=== PATIENT | female | born 1960 | race Caucasian/White ===

== ENCOUNTER 2020-12-08 12:25 | Emergency (ER) | payer MEDICARE, OTHER ==
[~2020-12-08] VITALS: Ht 160 cm; Wt 77.1 kg
[~2020-12-08 12:25] MED LIST: ALBUTEROL2.5 MG/0.5 INH; AMITRIPTYLINE H50 MG PO; ATIVAN1 MG PO; AUGMENTIN 875-1 EACH PO; BENADRYL25 MG PO; NORCO 5-325 TA1 EACH PO; PREDNISONE20 MG PO; SINGULAIR10 MG PO; VITAMIN D31000 UNIT PO; ZITHROMAX250 MG PO; ZOFRAN ODT4 MG PO
--- OUTSIDE RECORDS SUMMARY | 2020-12-08 12:28 | XMS ---
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 [facility] (12 MO.) [facility] T[facility] NOTE: Visits indicate total known visits. ED/UCC VISIT TRACKING (12 MO.) 12/08/2020 12:26 [facility] TYPE: Emergency COMPLAINT: - DIFFUCULTY BREATHING 11/17/2020 02:21 [facility] [place] TYPE: Emergency DIAGNOSES: - Periumbilical pain - Nausea with vomiting, unspecified - Abdominal Pain - Elevated urine levels of drugs, medicaments and biological substances - Fever, unspecified - Dehydration - Hypomagnesemia 11/07/2020 22:22 [facility] [place] TYPE: Emergency DIAGNOSES: - Nausea with vomiting, unspecified - Dizziness and giddiness - Chronic obstructive pulmonary disease, unspecified - Dizziness - Weakness - dizziness, weakness - Hypokalemia - Alcohol use, unspecified with intoxication, uncomplicated - Hypomagnesemia 09/25/2020 02:31 [facility] [place] TYPE: Emergency DIAGNOSES: - Fall - Abdominal Pain - Encounter for general adult medical examination without abnormal findings 09/20/2020 17:54 [facility] [place] TYPE: Emergency DIAGNOSES: - Anxiety disorder, unspecified - Contusion of scalp, initial encounter - Alcohol Intoxication - Anxiety - Unspecified fall, initial encounter - Depression 09/19/2020 12:40 [facility] [place] TYPE: Emergency DIAGNOSES: - Chest Pain - Head Injury Without Loc - Unspecified injury of head, initial encounter - Fall - Sinus Pain - Unspecified fall, initial encounter [facility] DIAGNOSES: - Chest Pain - Dorsalgia, unspecified - Back Pain - Chest pain, unspecified - Cough 09/12/2020 09:54 [facility]: [facility] DIAGNOSES: - head pain - Chronic sinusitis, unspecified - Headache (Adult - New Onset Or New Symptoms) 08/29/2020 21:03 [facility] [place] TYPE: Emergency DIAGNOSES: - Shortness of Breath - Chest Pain - Chronic obstructive pulmonary disease with (acute) exacerbation 08/11/2020 02:11 [facility] [place] TYPE: Emergency DIAGNOSES: - Hypo-osmolality and hyponatremia - Abnormal electrocardiogram [ECG] [EKG] - Dizziness and giddiness - Hypomagnesemia - Syncope 08/07/2020 02[facility] [place] [facility] DIAGNOSES: - Facial Swelling - Shortness of Breath - Other diseases of vocal cords - Allergy, unspecified, initial encounter 08/05/2020 12:08 [facility] [facility] DIAGNOSES: - Cold-like Symptoms - Bronchitis, not specified as acute or chronic - ambulance 07/21/2020 01[facility] DIAGNOSES: - Chest Pressure - Hypo-osmolality and hyponatremia - Cough - Anxiety - Bronchitis, not specified as acute or chronic - Pain, unspecified - Anxiety disorder, unspecified - Essential (primary) hypertension 07/19/2020 02:[facility] DIAGNOSES: - Vomiting, unspecified - Hypo-osmolality and hyponatremia - Shortness of breath - Cough - Chest Pain - Other chest pain - Cough - Shortness of Breath 07/18/2020 05:33 [facility] [place] TYPE: Emergency DIAGNOSES: - Vomiting, unspecified 07/17/2020 12:10 [facility] [place] TYPE: Emergency DIAGNOSES: - Bronchitis, not specified as acute or chronic - Alcohol use, unspecified with intoxication, uncomplicated - Emesis - Pain 06/24/2020 17:46 [facility] [place] TYPE: Emergency DIAGNOSES: - Pain - Nausea - Insomnia, unspecified - Nausea; Cramps - Pain, unspecified - Dizziness and giddiness - Anxiety disorder, unspecified - Emesis - Hypo-osmolality and hyponatremia 06/15/2020 10:32 [facility] [place] [facility] DIAGNOSES: - Shortness of Breath - Hypo-osmolality and hyponatremia - Shortness of breath - Chronic obstructive pulmonary disease, unspecified 04/29/2020 07:[facility] DIAGNOSES: - Epistaxis - chest pain, sob - Shortness of Breath - Chest Pain - Epistaxis 02/26/2020 18:08 [facility] [place] [facility] DIAGNOSES: - Cough - Chronic sinusitis, unspecified - Shortness of Breath INPATIENT VISIT TRACKING (12 MO.) 11/17/2020 02:21 [facility] [place] TYPE: Surgical Services DIAGNOSES: - Change in bowel habit - Periumbilical pain - Nausea with vomiting, unspecified - Dehydration - Hypokalemia - Fever, unspecified - Gastro-esophageal reflux disease without esophagitis - Hypomagnesemia - Anxiety disorder due to known physiological condition - Elevated urine levels of drugs, medicaments and biological substances - Dysphagia, unspecified - Vomiting, unspecified - Alcoholic hepatitis without ascites 08/11/2020 02:11 [facility] [place] TYPE: Medical Surgical DIAGNOSES: - Hypomagnesemia - Alcohol dependence with other alcohol-induced disorder - Hypo-osmolality and hyponatremia - Dizziness and giddiness - Alcoholic hepatitis without ascites - Abnormal electrocardiogram [ECG] [EKG] 07/21/2020 01:47 [facility] [place] TYPE: Medical Surgical DIAGNOSES: - Cough - Other microscopic hematuria - Chronic obstructive pulmonary disease with (acute) exacerbation - Morbid (severe) obesity due to excess calories - Alcoholic hepatitis without ascites - Essential (primary) hypertension - Hypo-osmolality and hyponatremia - Alcohol dependence with other alcohol-induced disorder - Anxiety disorder, unspecified - Severe persistent asthma, uncomplicated - Body mass index [BMI]40.0-44.9, adult - Fibromyalgia - Bronchitis, not specified as acute or chronic - Pain, unspecified 06/24/2020 17:46 [facility] [place] TYPE: Medical Surgical DIAGNOSES: - Mild intermittent asthma, uncomplicated - Nausea - Overweight - Fibromyalgia - Dizziness and giddiness - Insomnia, unspecified - Pain, unspecified - Generalized anxiety disorder - Hypo-osmolality and hyponatremia - Anxiety disorder, unspecified - Alcohol dependence with other alcohol-induced disorder - Acute cystitis with hematuria [email or web address]
[2020-12-08] MEDS ORDERED: LORAZEPAM0.5 MG PO (12:39)
[2020-12-08] MEDS ORDERED: OMEPRAZOLE20 MG PO (12:39)
[2020-12-08] MEDS ORDERED: MAG-OXIDE400 MG PO (12:39)
--- NOTE | 2020-12-08 20:06 | EKG ---
[facility] [address] [facility] [place], [place] [address] Signed Normal sinus rhythm Prolonged QT Abnormal ECG No previous ECGs available Confirmed by ANDRE MOHR DO ([id number]) on 12/08/2020 8:06:24 PM Electronically Signed By: ANDRE MOHR DO 12/08/20 2006 PATIENT NAME: GUNJAN DIAZ Electrocardiogram DATE OF : 62 PHYSICIAN: ANDRE MOHR DO REPORT #: [id number] REPORT IS CONFIDENTIAL AND NOT TO BE RELEASED WITHOUT AUTHORIZATION
== END 2020-12-08 16:17 | disposition home or self-care (01) ==
LOC: ED 12:25
DX: F41.9 Anxiety disorder, unspecified (principal); R07.9 Chest pain, unspecified; J44.9 Chronic obstructive pulmonary disease, unspecified; I50.9 Heart failure, unspecified; M19.90 Unspecified osteoarthritis, unspecified site; Z87.891 Personal history of nicotine dependence; Z88.5 Allergy status to narcotic agent; Z88.7 Allergy status to serum and vaccine; Z88.8 Allergy status to other drugs, medicaments and biological substances; Z79.899 Other long term (current) drug therapy
CPT/HCPCS: 71045; 80053; 83880; 84484; 85025; 93005; 93010; 99285-25